=== PATIENT | female | born 1935 | race Caucasian/White ===

== ENCOUNTER 2023-11-14 14:35 | Inpatient (IN) | payer OTHER ==
[~2023-11-14] VITALS: Ht 162.6 cm; Wt 64.0 kg
[2023-11-14 15:29] LABS: Hematocrit 43.8 % (36.0-46.0); Hemoglobin 13.8 g/dL (12.2-16.2); Mean Corpuscular Hemoglobin 29.2 pg (28.0-32.0); Mean Corpuscular Hgb Conc. 31.5 g/dL (32.0-36.0); Mean Corpuscular Volume 92.8 fL (80.0-100.0); Red Blood Cells 4.72 10^6/uL (4.0-5.20); Red Cell Distribution Width 15.8 % (11.8-14.3)
[2023-11-14 15:36] LABS: Basophils % (manual) 0 (0.0-2.0); Blast Cells 0; Eosinophils % (manual) 0 (0-7); Metamyelocytes % 0; Myelocytes % 0; Promyelocytes % 0; Reactive Lymphocytes 0
[2023-11-14 15:38] LABS: INR 1.27 (0.9-1.15); Prothrombin Time 13.1 sec (9.3-11.8)
[2023-11-14 15:43] LABS: Albumin 3.8 g/dL (3.2-4.8); Alkaline Phosphatase 129 U/L (46-116); Anion Gap 16 (5-15); Aspartate Aminotransferase 606 U/L (13-40); Carbon Dioxide 16 mmol/L (20-30); Chloride 112 mmol/L (98-107); Glucose 119 mg/dL (74-106); Sodium 144 mmol/L (136-145)
[2023-11-14 15:44] LABS: Bilirubin, Total 0.6 mg/dL (0.2-1.0); Total Protein 5.9 g/dL (5.7-8.2)
[2023-11-14 15:45] VITALS: PULSE 96; RESP 16
[2023-11-14 15:53] LABS: Urine Bacteria MOD /hpf (None Seen); Urine Blood 3+ /uL (Negative); Urine Clarity HAZY (Clear); Urine Color Yellow (Yellow); Urine Mucus FEW (None Seen); Urine Protein, UAD 2+ (Negative); Urine Specific Gravity 1.011 (1.001-1.035); Urine Urobilinogen Normal (Negative); Urine WBC 74 /hpf (0 - 5); Urine WBC Clumps PRESENT /hpf (None Seen); Urine pH 5.5 (5.0-8.0)
[2023-11-14 15:54] LABS: Alanine Aminotransferase 286 U/L (7-40); Blood Urea Nitrogen 40 mg/dL (9-23); Lipase 38 U/L (12-53); Potassium 4.3 mmol/L (3.5-5.1)
[2023-11-14] MEDS: SODIUM CHLORIDE 0.9% 1,500 ML IV ONE (16:00)
[2023-11-14] MEDS: ASPirin-EC 325mg tab PO ONE (16:09)
[2023-11-14] MEDS: PIPERACILLIN-TAZO 4.5GM 100 ML IV ONE (16:09)
[2023-11-14 16:17] LABS: Band Neutrophils % (manual) 23; Lymphocytes % (manual) 2 (10.0-50.0); Monocytes % (manual) 6 (0-12)
[2023-11-14 16:18] LABS: Platelet Estimate Adequate
[2023-11-14 16:39] LABS: BUN/Creatinine Ratio 22.6 (10.0-20.0)
[2023-11-14 17:20] LABS: Lactic Acid w/Reflex 5.3 mmol/L (0.4-2.0)
[2023-11-14] MEDS: NOREPINEPHRINE 8 MG/250ML KIT 250 ML IV SCH (17:40)
[2023-11-14] MEDS: NOREPINEPHRINE 8 MG/250ML KIT 250 ML IV ONE (17:42)
[2023-11-14] MEDS: CIPROFLOXACIN 400MG/200ML 200 ML IV ONE (18:54)
[2023-11-14 19:24] VITALS: PULSE 93; RESP 23; O2SAT 97; O2SAT 98
[2023-11-14] MEDS: VANCOMYCIN 1GM/200ML 200 ML IV ONE (20:45)
[2023-11-14] MEDS ORDERED: VANCOMYCIN PER PHARMACY 0 MG IV SCH (21:00)
[2023-11-14] MEDS: ATORVASTATIN 20 MG TAB PO SCH (22:00)
[2023-11-14] MEDS ORDERED: MORPHINE SULFATE INJ 2 MG/ml SYRG IV PRN (22:15)
[2023-11-14] MEDS ORDERED: NITROGLYCERIN 0.4 MG SL TAB SL PRN (22:15)
[2023-11-14] MEDS: SOD CHL 0.45% 1,000 ML IV SCH (23:19)
[2023-11-14] MEDS: MELATONIN 5 MG TAB ONE (23:26)
[2023-11-14] MEDS: MELATONIN 5 MG TAB PO ONE (23:27)
[2023-11-15] VITALS (30 sets, daily range): BP systolic 82–141; BP diastolic 33–117; PULSE 77–99; RESP 16–29; TEMP 97.7–98.1; O2SAT 90–96
[2023-11-15 06:08] LABS: Hemoglobin 13.4 g/dL (12.2-16.2)
[2023-11-15 06:10] LABS: Hematocrit 40.9 % (36.0-46.0); Mean Corpuscular Hemoglobin 29.1 pg (28.0-32.0); Mean Corpuscular Hgb Conc. 32.9 g/dL (32.0-36.0); Mean Corpuscular Volume 88.6 fL (80.0-100.0); Red Blood Cells 4.62 10^6/uL (4.0-5.20); Red Cell Distribution Width 15.1 % (11.8-14.3)
[2023-11-15 06:21] LABS: White Blood Cell 35.7 10^3/uL (4.4-10.8)
[2023-11-15 06:22] LABS: Basophils % (manual) 0 (0.0-2.0); Blast Cells 0; Eosinophils % (manual) 0 (0-7); Metamyelocytes % 0; Myelocytes % 0; Promyelocytes % 0; Reactive Lymphocytes 0
[2023-11-15 06:26] LABS: Alanine Aminotransferase 246 U/L (7-40); Albumin 3.7 g/dL (3.2-4.8); Alkaline Phosphatase 121 U/L (46-116); Anion Gap 12 (5-15); Aspartate Aminotransferase 453 U/L (13-40); Blood Urea Nitrogen 37 mg/dL (9-23); Calcium 9.3 mg/dL (8.7-10.4); Carbon Dioxide 20 mmol/L (20-30); Chloride 109 mmol/L (98-107); Glucose 81 mg/dL (74-106); Potassium 3.3 mmol/L (3.5-5.1); Sodium 141 mmol/L (136-145)
[2023-11-15 06:27] LABS: Bilirubin, Total 0.8 mg/dL (0.2-1.0); Total Protein 5.9 g/dL (5.7-8.2)
[2023-11-15 08:35] LABS: Triglycerides 89 mg/dL (< 150)
[2023-11-15 08:36] LABS: LDL Cholesterol 37 mg/dL (< 100)
[2023-11-15 08:37] LABS: Cholesterol 99 mg/dL (< 200); HDL Cholesterol 35 mg/dL (40-59)
[2023-11-15 08:56] LABS: Band Neutrophils % (manual) 22; Monocytes % (manual) 5 (0-12)
[2023-11-15] MEDS: cefTRIAXone 1GM/50ML D5W 50 ML IV SCH (08:57)
[2023-11-15 08:58] LABS: Lymphocytes % (manual) 3 (10.0-50.0)
[2023-11-15 09:02] LABS: Anisocytosis Slight; Platelet Estimate Adequate
[2023-11-15 09:04] LABS: Tear Drop Cells FEW
[2023-11-15] MEDS: ASPirin 81 mg TAB PO SCH (09:40)
[2023-11-15] MEDS: ACETAMINOPHEN 325 MG TAB PO PRN (09:40)
[2023-11-15] MEDS: POTASSIUM CHL 20MEQ/100ML 100 ML IV SCH (10:50)
[2023-11-15 12:01] LABS: Protein, Urine 61.4 mg/dL (0.0-11.9)
[2023-11-15 12:03] LABS: Creatinine, Urine 44.48 mg/dL (30.0-125.0)
[2023-11-15 12:04] LABS: Creatinine, Urine 44.89 mg/dL (30.0-125.0); Urine Protein/Creatinine Ratio 1.37
[2023-11-15] MEDS: IBUPROFEN 400 MG TAB PO ONE (13:30)
[2023-11-15] MEDS: MAGNESIUM SULFATE 1GM/100ML 100 ML IV SCH (13:40)
[2023-11-15] MEDS: ONDANSETRON HCL 4 MG/2 ML VIAL IV PRN (14:07)
[2023-11-15] MEDS: VANCOMYCIN 500 MG in D5W 5% 100 ML IV SCH (14:20)
[2023-11-15] MEDS: ENOXAPARIN SOD 30 MG/0.3 ML SYRINGE SC SCH (14:54)
[2023-11-15] MEDS: CEFEPIME 2GM/50ML NS 50 ML IV SCH (15:12)
[2023-11-15] MEDS: SODIUM CHLORIDE 0.9% 1,000 ML IV SCH (16:55)
[2023-11-15] MEDS: SODIUM CHLORIDE 0.9% 500 ML IV ONE (16:55)
[2023-11-15] MEDS: DOCUSATE SOD 100 MG CAP PO PRN (19:34)
[2023-11-15] MEDS ORDERED: MELATONIN 5 MG TAB PO ONE (22:00)
[2023-11-15] MEDS: HYDROcodone-ACET 5/325MG TAB PO PRN (23:20)
[2023-11-16] VITALS (98 sets, daily range): BP systolic 60–153; BP diastolic 17–133; PULSE 59–91; RESP 11–26; TEMP 97.7–98.4; O2SAT 86–97
[2023-11-16 04:07] LABS: Hematocrit 38.1 % (36.0-46.0); Hemoglobin 12.2 g/dL (12.2-16.2); Mean Corpuscular Hemoglobin 28.7 pg (28.0-32.0); Mean Corpuscular Hgb Conc. 32.1 g/dL (32.0-36.0); Mean Corpuscular Volume 89.5 fL (80.0-100.0); Red Blood Cells 4.25 10^6/uL (4.0-5.20); White Blood Cell 27.7 10^3/uL (4.4-10.8)
[2023-11-16 04:14] LABS: Alanine Aminotransferase 197 U/L (7-40); Albumin 3.4 g/dL (3.2-4.8); Alkaline Phosphatase 122 U/L (46-116); Anion Gap 8 (5-15); Aspartate Aminotransferase 266 U/L (13-40); Bilirubin, Total 0.5 mg/dL (0.2-1.0); Calcium 8.5 mg/dL (8.7-10.4); Carbon Dioxide 17 mmol/L (20-30); Chloride 116 mmol/L (98-107); Glucose 101 mg/dL (74-106); Potassium 3.8 mmol/L (3.5-5.1); Sodium 141 mmol/L (136-145); Total Protein 5.6 g/dL (5.7-8.2)
[2023-11-16 04:25] LABS: Creatine Kinase IFCC 2553 U/L (34-145)
[2023-11-16 04:30] LABS: Basophils % (manual) 0 (0.0-2.0); Blast Cells 0; Eosinophils % (manual) 0 (0-7); Metamyelocytes % 0; Myelocytes % 0; Promyelocytes % 0; Reactive Lymphocytes 0
[2023-11-16 04:32] LABS: Blood Urea Nitrogen 24 mg/dL (9-23)
[2023-11-16 08:06] LABS: Lymphocytes % (manual) 4 (10.0-50.0); Monocytes % (manual) 6 (0-12)
[2023-11-16 08:07] LABS: Band Neutrophils % (manual) 14
[2023-11-16 08:10] LABS: Anisocytosis Slight; Platelet Estimate Adequate; Tear Drop Cells FEW
[2023-11-16] MEDS: PANTOPRAZOLE 40 MG TAB PO SCH (09:34)
[2023-11-16] MEDS ORDERED: OMEP20TA PO (10:09)
[2023-11-16] MEDS ORDERED: SIMV80TA17 PO (10:09)
[2023-11-16] MEDS ORDERED: HYDR12.59 PO (10:09)
[2023-11-16] MEDS ORDERED: POTA-36 PO (10:09)
[2023-11-16 10:33] LABS: Magnesium 2.5 mg/dL (1.6-2.6)
[2023-11-16 10:36] LABS: Hepatitis B Surface Antigen Negative (Negative)
[2023-11-16 10:57] LABS: Hepatitis A Ab IgM Negative; Hepatitis B Core IgM Negative; Hepatitis C Antibody Negative (Negative)
[2023-11-16 11:13] LABS: Hepatitis B Core Total AB Negative (Negative)
[2023-11-16 12:44] LABS: Hepatitis A Total Antibody Negative (Negative); Hepatitis B Surface Antibody Negative (Negative)
[2023-11-16 12:45] LABS: Hepatitis C Antibody Negative (Negative)
[2023-11-16 12:46] LABS: Hepatitis B Surface Antigen Negative (Negative)
[2023-11-16] MEDS: SODIUM CHLORIDE 0.9% 1,000 ML IV SCH (14:30)
[2023-11-17] VITALS (25 sets, daily range): BP systolic 84–114; BP diastolic 36–60; PULSE 65–80; RESP 16–22; TEMP 98.2–98.3; O2SAT 91–95
[2023-11-17 02:37] LABS: Basophils # (auto) 0 10 ^3/uL (0-0.2); Basophils % (auto) 0.2 % (0.0-2.0); Eosinophils # (auto) 0.1 10 ^3/uL (0-0.8); Eosinophils % (auto) 0.8 % (0.0-7.0); Hematocrit 34.6 % (36.0-46.0); Hemoglobin 11.4 g/dL (12.2-16.2); Lymphocytes # (auto) 1.1 10 ^3/uL (0.4-5.4); Lymphocytes % (auto) 6.3 % (10.0-50.0); Mean Corpuscular Hemoglobin 29.6 pg (28.0-32.0); Mean Corpuscular Hgb Conc. 33.1 g/dL (32.0-36.0); Mean Corpuscular Volume 89.2 fL (80.0-100.0); Monocytes # (auto) 0.7 10 ^3/uL (0-1.3); Monocytes % (auto) 4.1 % (0.0-12.0); Neutrophils # (auto) 14.9 10 ^3/uL (1.6-8.6); Neutrophils % (auto) 88.6 % (37.0-80.0); Red Blood Cells 3.87 10^6/uL (4.0-5.20); Red Cell Distribution Width 15.6 % (11.8-14.3); White Blood Cell 16.9 10^3/uL (4.4-10.8)
[2023-11-17 02:57] LABS: Alanine Aminotransferase 153 U/L (7-40); Alkaline Phosphatase 213 U/L (46-116); Anion Gap 7 (5-15); Aspartate Aminotransferase 167 U/L (13-40); BUN/Creatinine Ratio 24.7 (10.0-20.0); Blood Urea Nitrogen 18 mg/dL (9-23); Calcium 8.5 mg/dL (8.7-10.4); Carbon Dioxide 18 mmol/L (20-30); Chloride 116 mmol/L (98-107); Glucose 80 mg/dL (74-106); Potassium 3.1 mmol/L (3.5-5.1); Sodium 141 mmol/L (136-145)
[2023-11-17 02:58] LABS: Bilirubin, Total 0.8 mg/dL (0.2-1.0); Total Protein 4.9 g/dL (5.7-8.2)
[2023-11-17] MEDS ORDERED: POTASSIUM CHLORIDE 40 MEQ, LIDOCAINE 1% (LOCAL ANESTH.) 4 ML in SODIUM CHL 0.9% 250 ML IV ONE (09:00)
[2023-11-17] MEDS: POTASSIUM CHL 20MEQ/100ML 100 ML IV ONE ×2 (09:11→11:35)
[2023-11-18 05:31] LABS: Basophils # (auto) 0 10 ^3/uL (0-0.2); Basophils % (auto) 0.3 % (0.0-2.0); Eosinophils # (auto) 0.1 10 ^3/uL (0-0.8); Eosinophils % (auto) 0.9 % (0.0-7.0); Hematocrit 36.8 % (36.0-46.0); Hemoglobin 12.4 g/dL (12.2-16.2); Lymphocytes # (auto) 1.1 10 ^3/uL (0.4-5.4); Lymphocytes % (auto) 8.8 % (10.0-50.0); Mean Corpuscular Hemoglobin 29.6 pg (28.0-32.0); Mean Corpuscular Hgb Conc. 33.7 g/dL (32.0-36.0); Mean Corpuscular Volume 87.9 fL (80.0-100.0); Monocytes # (auto) 0.8 10 ^3/uL (0-1.3); Monocytes % (auto) 6.5 % (0.0-12.0); Neutrophils # (auto) 10.7 10 ^3/uL (1.6-8.6); Neutrophils % (auto) 83.5 % (37.0-80.0); Red Blood Cells 4.18 10^6/uL (4.0-5.20); Red Cell Distribution Width 14.9 % (11.8-14.3); White Blood Cell 12.8 10^3/uL (4.4-10.8)
[2023-11-18 05:37] LABS: Alanine Aminotransferase 148 U/L (7-40); Albumin 3.3 g/dL (3.2-4.8); Alkaline Phosphatase 301 U/L (46-116); Anion Gap 10 (5-15); Aspartate Aminotransferase 135 U/L (13-40); BUN/Creatinine Ratio 21.9 (10.0-20.0); Blood Urea Nitrogen 14 mg/dL (9-23); Calcium 9.8 mg/dL (8.5-10.1); Carbon Dioxide 20 mmol/L (20-30); Chloride 112 mmol/L (98-107); Glucose 78 mg/dL (74-106); Potassium 3.2 mmol/L (3.5-5.1); Sodium 142 mmol/L (136-145)
[2023-11-18] MEDS: SODIUM CHLORIDE 0.9% 1,000 ML IV SCH (07:40)
[2023-11-18 08:00] VITALS: PULSE 78; PULSE 79; RESP 19; O2SAT 96
[2023-11-18] MEDS ORDERED: POTASSIUM CHLORIDE 40 MEQ, LIDOCAINE 1% (LOCAL ANESTH.) 4 ML in SODIUM CHL 0.9% 250 ML IV ONE (13:30)
[2023-11-18] MEDS: POTASSIUM CHL 20 Meq TABLET PO ONE (17:56)
[2023-11-18] MEDS: KETOROLAC TROMETH 30 MG/ML 1ML VIAL IV ONE (17:57)
[2023-11-18 20:00] VITALS: PULSE 62
[2023-11-18] MEDS ORDERED: CEFEPIME 1GM/ 50ML 50 ML IV SCH (22:00)
[2023-11-19 05:36] LABS: Basophils # (auto) 0 10 ^3/uL (0-0.2); Basophils % (auto) 0.4 % (0.0-2.0); Eosinophils # (auto) 0.2 10 ^3/uL (0-0.8); Eosinophils % (auto) 1.8 % (0.0-7.0); Hematocrit 34.4 % (36.0-46.0); Hemoglobin 11.4 g/dL (12.2-16.2); Lymphocytes # (auto) 1.3 10 ^3/uL (0.4-5.4); Lymphocytes % (auto) 12.4 % (10.0-50.0); Mean Corpuscular Hemoglobin 29.3 pg (28.0-32.0); Mean Corpuscular Volume 88.6 fL (80.0-100.0); Monocytes # (auto) 1.3 10 ^3/uL (0-1.3); Monocytes % (auto) 12.1 % (0.0-12.0); Neutrophils # (auto) 7.9 10 ^3/uL (1.6-8.6); Neutrophils % (auto) 73.3 % (37.0-80.0); Red Blood Cells 3.89 10^6/uL (4.0-5.20); White Blood Cell 10.8 10^3/uL (4.4-10.8)
[2023-11-19 05:39] LABS: Alanine Aminotransferase 123 U/L (7-40); Albumin 3.1 g/dL (3.2-4.8); Alkaline Phosphatase 242 U/L (46-116); Anion Gap 8 (5-15); Aspartate Aminotransferase 78 U/L (13-40); BUN/Creatinine Ratio 19.7 (10.0-20.0); Blood Urea Nitrogen 12 mg/dL (9-23); Calcium 9.7 mg/dL (8.7-10.4); Carbon Dioxide 20 mmol/L (20-30); Chloride 112 mmol/L (98-107); Glucose 87 mg/dL (74-106); Magnesium 1.6 mg/dL (1.6-2.6); Potassium 3.4 mmol/L (3.5-5.1); Sodium 140 mmol/L (136-145)
[2023-11-19 05:40] LABS: Bilirubin, Total 0.8 mg/dL (0.2-1.0); Creatine Kinase IFCC 131 U/L (34-145); Total Protein 5.2 g/dL (5.7-8.2)
[2023-11-19 08:00] VITALS: PULSE 77; PULSE 92; RESP 20; O2SAT 93
[2023-11-19 08:10] VITALS: BP 139/68; PULSE 92; RESP 20; TEMP 99.1; O2SAT 93
[2023-11-19] MEDS: ENOXAPARIN SOD 40 MG/0.4 ML SYRINGE SC SCH (08:41)
[2023-11-19] MEDS: cefTRIAXone 1GM/50ML D5W 50 ML IV SCH (08:42)
[2023-11-19] MEDS: POTASSIUM CHL 20 Meq TABLET PO ONE (08:42)
[2023-11-19 12:10] VITALS: BP 125/69; PULSE 83; RESP 20; TEMP 98; O2SAT 95
[2023-11-19 16:05] VITALS: BP 114/66; PULSE 85; RESP 18; TEMP 98.2; O2SAT 93
[2023-11-19 20:00] VITALS: PULSE 97; RESP 18; O2SAT 92
[2023-11-19 21:00] VITALS: BP 135/69; PULSE 95; RESP 18; TEMP 98.4; O2SAT 90
[2023-11-20] VITALS (8 sets, daily range): BP systolic 118–158; BP diastolic 58–66; PULSE 73–89; RESP 14–18; TEMP 98–98.7; O2SAT 82–93
[2023-11-20 04:59] LABS: Basophils # (auto) 0.1 10 ^3/uL (0-0.2); Basophils % (auto) 0.4 % (0.0-2.0); Eosinophils # (auto) 0.2 10 ^3/uL (0-0.8); Eosinophils % (auto) 1.3 % (0.0-7.0); Hematocrit 33.8 % (36.0-46.0); Hemoglobin 11.2 g/dL (12.2-16.2); Lymphocytes # (auto) 1.5 10 ^3/uL (0.4-5.4); Lymphocytes % (auto) 10.6 % (10.0-50.0); Mean Corpuscular Hemoglobin 29.1 pg (28.0-32.0); Mean Corpuscular Hgb Conc. 33.2 g/dL (32.0-36.0); Mean Corpuscular Volume 87.7 fL (80.0-100.0); Monocytes # (auto) 1.6 10 ^3/uL (0-1.3); Monocytes % (auto) 11.2 % (0.0-12.0); Neutrophils # (auto) 10.6 10 ^3/uL (1.6-8.6); Neutrophils % (auto) 76.5 % (37.0-80.0); Red Blood Cells 3.86 10^6/uL (4.0-5.20); Red Cell Distribution Width 15.3 % (11.8-14.3); White Blood Cell 13.8 10^3/uL (4.4-10.8)
[2023-11-20 05:25] LABS: Alanine Aminotransferase 105 U/L (7-40); Alkaline Phosphatase 212 U/L (46-116); Anion Gap 6 (5-15); Aspartate Aminotransferase 69 U/L (13-40); BUN/Creatinine Ratio 15.7 (10.0-20.0); Bilirubin, Total 0.7 mg/dL (0.2-1.0); Blood Urea Nitrogen 8 mg/dL (9-23); Calcium 9.2 mg/dL (8.7-10.4); Carbon Dioxide 21 mmol/L (20-30); Chloride 108 mmol/L (98-107); Glucose 101 mg/dL (74-106); Magnesium 1.6 mg/dL (1.6-2.6); Potassium 3.3 mmol/L (3.5-5.1); Total Protein 5.2 g/dL (5.7-8.2)
[2023-11-20 05:27] LABS: Sodium 135 mmol/L (136-145)
[2023-11-20] MEDS: levoFLOXacin 500 MG TAB PO ONE (09:20)
[2023-11-20] MEDS: POTASSIUM CHLORIDE 8 MEQ TAB PO ONE (09:20)
[2023-11-21] VITALS (8 sets, daily range): BP systolic 119–131; BP diastolic 57–70; PULSE 83–101; RESP 18–23; TEMP 97.6–99; O2SAT 91–94
[2023-11-21 05:26] LABS: Basophils # (auto) 0 10 ^3/uL (0-0.2); Basophils % (auto) 0.3 % (0.0-2.0); Eosinophils # (auto) 0.3 10 ^3/uL (0-0.8); Eosinophils % (auto) 2.2 % (0.0-7.0); Hematocrit 34.6 % (36.0-46.0); Hemoglobin 11.5 g/dL (12.2-16.2); Lymphocytes # (auto) 1.4 10 ^3/uL (0.4-5.4); Lymphocytes % (auto) 10.7 % (10.0-50.0); Mean Corpuscular Hemoglobin 29.1 pg (28.0-32.0); Mean Corpuscular Hgb Conc. 33.1 g/dL (32.0-36.0); Mean Corpuscular Volume 87.7 fL (80.0-100.0); Monocytes # (auto) 1.4 10 ^3/uL (0-1.3); Neutrophils # (auto) 9.9 10 ^3/uL (1.6-8.6); Neutrophils % (auto) 75.8 % (37.0-80.0); Red Blood Cells 3.95 10^6/uL (4.0-5.20); Red Cell Distribution Width 15.1 % (11.8-14.3); White Blood Cell 13.1 10^3/uL (4.4-10.8)
[2023-11-21 05:44] LABS: Alanine Aminotransferase 111 U/L (7-40); Albumin 3.2 g/dL (3.2-4.8); Alkaline Phosphatase 190 U/L (46-116); Anion Gap 7 (5-15); Aspartate Aminotransferase 81 U/L (13-40); BUN/Creatinine Ratio 21.8 (10.0-20.0); Blood Urea Nitrogen 12 mg/dL (9-23); Calcium 9.6 mg/dL (8.7-10.4); Carbon Dioxide 23 mmol/L (20-30); Chloride 108 mmol/L (98-107); Glucose 90 mg/dL (74-106); Potassium 3.3 mmol/L (3.5-5.1); Sodium 138 mmol/L (136-145)
[2023-11-21 05:45] LABS: Bilirubin, Total 0.7 mg/dL (0.2-1.0); Total Protein 5.6 g/dL (5.7-8.2)
[2023-11-21] MEDS: levoFLOXacin 250 MG TAB PO SCH (09:36)
[2023-11-22] VITALS (9 sets, daily range): BP systolic 108–134; BP diastolic 52–72; PULSE 79–96; RESP 17–21; TEMP 98–98.5; O2SAT 90–97
[2023-11-22 18:13] LABS: Basophils # (auto) 0 10 ^3/uL (0-0.2); Basophils % (auto) 0.3 % (0.0-2.0); Eosinophils # (auto) 0.3 10 ^3/uL (0-0.8); Eosinophils % (auto) 2.2 % (0.0-7.0); Hematocrit 36.1 % (36.0-46.0); Hemoglobin 11.9 g/dL (12.2-16.2); Lymphocytes # (auto) 1.2 10 ^3/uL (0.4-5.4); Mean Corpuscular Hemoglobin 28.9 pg (28.0-32.0); Mean Corpuscular Volume 87.7 fL (80.0-100.0); Monocytes # (auto) 1.1 10 ^3/uL (0-1.3); Monocytes % (auto) 9.3 % (0.0-12.0); Neutrophils # (auto) 9.4 10 ^3/uL (1.6-8.6); Neutrophils % (auto) 78.2 % (37.0-80.0); Nucleated Red Blood Cells % 0.1 %; Red Blood Cells 4.12 10^6/uL (4.0-5.20); Red Cell Distribution Width 15.3 % (11.8-14.3); White Blood Cell 12.1 10^3/uL (4.4-10.8)
[2023-11-22 18:15] LABS: Chloride 105 mmol/L (98-107); Potassium 3.9 mmol/L (3.5-5.1); Sodium 141 mmol/L (136-145)
[2023-11-22 18:16] LABS: Anion Gap 11 (5-15); Calcium 9.9 mg/dL (8.7-10.4); Carbon Dioxide 25 mmol/L (20-30)
[2023-11-22 18:21] LABS: BUN/Creatinine Ratio 31.9 (10.0-20.0); Blood Urea Nitrogen 22 mg/dL (9-23); Glucose 130 mg/dL (74-106)
[2023-11-23] VITALS (8 sets, daily range): BP systolic 101–135; BP diastolic 55–66; PULSE 76–91; RESP 17–19; TEMP 97.5–98.1; O2SAT 86–94
[2023-11-24] VITALS (7 sets, daily range): BP systolic 99–131; BP diastolic 54–72; PULSE 71–97; RESP 16–18; TEMP 97.7–98.5; O2SAT 91–97
[2023-11-24 12:43] LABS: COVID19 ANTIGEN SOFIA FIA NEGATIVE (NEGATIVE)
== END 2023-11-24 18:30 | DRG 871 ==
LOC: EDBD 14:35 → ER 14:35 → TELE 22:03 → ICU WEST 11-15 17:15 → UNDODISIN 11-16 02:30 → TELE-CENTR 11-17 10:25
PROVIDERS: ADMIT Internal Medicine; ATTEND Internal Medicine
DX: A41.51 Sepsis due to Escherichia coli [E. coli] (principal); G93.41 Metabolic encephalopathy; I21.A1 Myocardial infarction type 2; R65.21 Severe sepsis with septic shock; N17.0 Acute kidney failure with tubular necrosis; K72.00 Acute and subacute hepatic failure without coma; I50.41 Acute combined systolic (congestive) and diastolic (congestive) heart failure; J96.00 Acute respiratory failure, unspecified whether with hypoxia or hypercapnia; M62.82 Rhabdomyolysis; I13.0 Hypertensive heart and chronic kidney disease with heart failure and stage 1 through stage 4 chronic kidney disease, or unspecified chronic kidney disease; E44.1 Mild protein-calorie malnutrition; N39.0 Urinary tract infection, site not specified; Z20.822 Contact with and (suspected) exposure to COVID-19; R26.81 Unsteadiness on feet; E87.6 Hypokalemia; I95.9 Hypotension, unspecified; N20.0 Calculus of kidney; N18.9 Chronic kidney disease, unspecified; K21.9 Gastro-esophageal reflux disease without esophagitis; G30.9 Alzheimer's disease, unspecified; B96.89 Other specified bacterial agents as the cause of diseases classified elsewhere; D69.6 Thrombocytopenia, unspecified; D64.9 Anemia, unspecified; F02.80 Dementia in other diseases classified elsewhere, unspecified severity, without behavioral disturbance, psychotic disturbance, mood disturbance, and anxiety; R74.01 Elevation of levels of liver transaminase levels; E78.5 Hyperlipidemia, unspecified; Z68.24 Body mass index [BMI] 24.0-24.9, adult; Z85.41 Personal history of malignant neoplasm of cervix uteri; Z85.828 Personal history of other malignant neoplasm of skin; Z90.710 Acquired absence of both cervix and uterus; Z79.899 Other long term (current) drug therapy
CPT/HCPCS: 36415; 70450; 71045; 73630; 74176; 76705; 76775; 80048; 80053; 80061; 80074; 80202; 81001; 82140; 82306; 82550; 82570; 82962; 83036; 83605; 83690; 83735; 83880; 83970; 84100; 84156; 84300; 84443; 84484; 85007; 85025; 85027; 85610; 86704; 86706; 86708; 86803; 87040; 87081; 87086; 87088; 87186; 87340; 87426; 93005; 93306; 96365; 96366; 96367; 97110; 97116; 97163; 97530; 99291; G0378; J0692; J1885; J2001; J2405; J2543; J3480; J7060